=== PATIENT | female | born 1990 | race Caucasian/White ===

== ENCOUNTER → 2018-10-31 | Outpatient (REF) | payer BC ==
[2018-11-04 14:12] LABS: HPV HYBRID CAPTURE II Negative (Negative)
== END ==
LOC: M LAB REF 13:14
PROVIDERS: ATTEND Specialist
DX: Z12.4 Encounter for screening for malignant neoplasm of cervix (principal)
CPT/HCPCS: 87624; G0123

== ENCOUNTER → 2022-07-22 | Outpatient (CLI) | payer BC | LOC: M WHC 10:14 | PROVIDERS: ATTEND Advanced Practice Midwife | DX: O09.812 Supervision of pregnancy resulting from assisted reproductive technology, second trimester (principal); Z3A.20 20 weeks gestation of pregnancy ==

== ENCOUNTER → 2022-09-04 | Outpatient (CLI) | payer BC ==
[2022-09-04 13:57] LABS: HEMATOCRIT 34.1 % (36.0-47.0); HEMOGLOBIN 11.3 g/dl (12.0-15.5); MEAN CORPUSCULAR HEMOGLOBIN 30.5 pg (27.0-33.0); MEAN CORPUSCULAR HGB CONC 33.1 g/dl (32.0-36.5); MEAN CORPUSCULAR VOLUME 92.2 fl (80.0-96.0); PLATELET COUNT, AUTOMATED 259 10^3/uL (150-450); WHITE BLOOD COUNT 10.4 10^3/uL (4.0-10.0)
== END ==
LOC: M PLALAB 09:36
PROVIDERS: ATTEND Advanced Practice Midwife
DX: O09.812 Supervision of pregnancy resulting from assisted reproductive technology, second trimester (principal)

== ENCOUNTER → 2022-09-14 | Outpatient (CLI) | payer BC | LOC: M WHC 10:20 | PROVIDERS: ATTEND Advanced Practice Midwife | DX: O09.813 Supervision of pregnancy resulting from assisted reproductive technology, third trimester (principal); Z3A.28 28 weeks gestation of pregnancy ==

== ENCOUNTER → 2022-11-12 | Outpatient (REF) | payer BC | LOC: M PLALAB 16:03 | PROVIDERS: ATTEND Advanced Practice Midwife | DX: Z36.85 Encounter for antenatal screening for Streptococcus B (principal) ==

== ENCOUNTER → 2022-12-02 | Outpatient (CLI) | payer BC | LOC: M WHC 13:25 | PROVIDERS: ATTEND Advanced Practice Midwife | DX: O40.3XX0 Polyhydramnios, third trimester, not applicable or unspecified (principal) ==

== ENCOUNTER 2022-12-05 14:10 | Inpatient (IN) | payer BC ==
[~2022-12-05] VITALS: Ht 160 cm; Wt 82.2 kg
[2022-12-05] MEDS ORDERED: CELE10TA PO (14:44)
[2022-12-05] MEDS ORDERED: PRENTAB9 PO (14:44)
[2022-12-05] MEDS ORDERED: TUMS500C PO (14:44)
[2022-12-05 14:52] VITALS: BP 112/77
[2022-12-05 15:47] LABS: HEMOGLOBIN 11.8 g/dl (12.0-15.5); MEAN CORPUSCULAR HEMOGLOBIN 30.6 pg (27.0-33.0); MEAN CORPUSCULAR HGB CONC 34.7 g/dl (32.0-36.5); MEAN CORPUSCULAR VOLUME 88.3 fl (80.0-96.0); PLATELET COUNT, AUTOMATED 225 10^3/uL (150-450); RED BLOOD COUNT 3.85 10^6/uL (4.00-5.40)
[2022-12-05] MEDS ORDERED: PENICILLIN G POTASSIUM 5 MU IV 5 MU in D5W MINI-BAG PLUS 100 ML IV STA (16:38)
[2022-12-05] MEDS ORDERED: LACTATED RINGER'S 1000 ML IV STA (16:38)
[2022-12-05] MEDS ORDERED: CARBOPROST TROMETHAMINE 250 MCG/ML AMP IM PRN (16:40)
[2022-12-05] MEDS ORDERED: LIDOCAINE 1% MDV 20ML VIAL INFIL PRN (16:40)
[2022-12-05] MEDS ORDERED: TRANEXAMIC ACID INJection 1,000 MG in NS 100 ML IV PRN (16:40)
[2022-12-05] MEDS ORDERED: METHYLERGONOVINE MALEATE 0.2MG/ML 1ML VIAL IM PRN (16:40)
[2022-12-05] MEDS ORDERED: OXYTOCIN DRIP 30 UNITS in IV 1 EA IV PRN (16:40)
[2022-12-05 16:59] LABS: GC DNA AMPLIFICATION NEGATIVE (NEGATIVE)
[2022-12-05] MEDS: LR 1,000 ML IV SCH (16:59)
[2022-12-05] MEDS: miSOPROStol 50MCG 1/2 TABLET SL SCH ×2 (16:59→21:24)
[2022-12-05 17:01] VITALS: BP 130/88
[2022-12-05] MEDS: PEN G POT 3,000,000 UNIT/50 ML 3,000,000 UNIT in IV 1 EA IV SCH (21:24)
[2022-12-06] VITALS (42 sets, daily range): BP systolic 101–144; BP diastolic 55–86
[2022-12-06] MEDS ORDERED: OXYTOCIN DRIP 30 UNITS in IV 1 EA IV SCH (01:00)
[2022-12-06] MEDS: PEN G POT 3,000,000 UNIT/50 ML 3,000,000 UNIT in IV 1 EA IV SCH ×6 (01:12→21:26)
[2022-12-06] MEDS ORDERED: MORPHINE 10 MG/ML 1ML VIAL IV ONE (03:30)
[2022-12-06] MEDS ORDERED: PROMETHAZINE 25MG/ML 1ML VIAL IV ONE (03:30)
[2022-12-06] MEDS: LR 1,000 ML IV SCH ×3 (05:03→18:09)
[2022-12-06] MEDS ORDERED: FENTANYL 2MCG/ML ROPIVACAINE 0.2% IN 0.9% NACL 100ML IVBAG As Ordered ONE (12:52)
[2022-12-06] MEDS ORDERED: EPIDURAL/PCA KEYS XX PRN (12:55)
[2022-12-06] MEDS ORDERED: diphenhydrAMINE 50MG/ML VIAL IV PRN (12:55)
[2022-12-06] MEDS ORDERED: NALOXONE INJ 0.4MG/1ML VIAL IV PRN (12:55)
[2022-12-06] MEDS ORDERED: ePHEDrine SULFATE 25 MG/5 ML(5MG/ML) SYRINGE IVP PRN (12:55)
[2022-12-06] MEDS ORDERED: LR 500 ML IV PRN (12:55)
[2022-12-06] MEDS ORDERED: ONDANSETRON 4MG 2ML VIAL IV PRN (12:55)
[2022-12-06] MEDS: FENTANYL/ROPIVACAINE/NACL BAG 100 ML EPIDURAL SCH ×2 (13:20→21:27)
[2022-12-06] MEDS: D5W/0.9% SODIUM CHLORIDE 1,000 ML IV SCH (19:58)
[2022-12-07] VITALS (10 sets, daily range): BP systolic 101–134; BP diastolic 56–79
[2022-12-07] MEDS: LR 1,000 ML IV SCH (01:00)
[2022-12-07] MEDS: PEN G POT 3,000,000 UNIT/50 ML 3,000,000 UNIT in IV 1 EA IV SCH (01:56)
[2022-12-07] MEDS ORDERED: ACETAMINOPHEN TAB 650MG DOSE (2X325MG) PO PRN (03:05)
[2022-12-07] MEDS ORDERED: ANUSOL HC CREAM 30GM TOP PRN (03:05)
[2022-12-07] MEDS ORDERED: LR 1,000 ML IV SCH (03:05)
[2022-12-07] MEDS ORDERED: IBUPROFEN 600MG TAB PO PRN (03:05)
[2022-12-07] MEDS ORDERED: METHYLERGONOVINE MALEATE 0.2 MG TAB PO PRN (03:05)
[2022-12-07] MEDS ORDERED: RHOGAM 300MCG (1500IU) INJ IM SCH (03:05)
[2022-12-07] MEDS ORDERED: DIBUCAINE 1% OINTMENT 30GM TOP PRN (03:05)
[2022-12-07] MEDS ORDERED: ONDANSETRON 4MG 2ML VIAL IV PRN (03:05)
[2022-12-07] MEDS ORDERED: OXYTOCIN DRIP 30 UNITS in IV 1 EA IV SCH (03:05)
[2022-12-07] MEDS: D5W/0.9% SODIUM CHLORIDE 1,000 ML IV SCH (03:20)
[2022-12-07] MEDS: IBUPROFEN 800 MG TAB PO PRN ×2 (06:34→17:19)
[2022-12-07] MEDS: PRENATAL VITAMINS CHEWABLE TABLET PO SCH (10:07)
[2022-12-07] MEDS: ACETAMINOPHEN 500 MG TAB PO PRN ×2 (10:08→22:19)
[2022-12-07] MEDS: DOCUSATE SODIUM 100MG CAPSULE PO PRN (22:19)
[2022-12-08] MEDS: IBUPROFEN 800 MG TAB PO PRN ×2 (05:13→13:20)
[2022-12-08 06:00] VITALS: BP 109/65
[2022-12-08] MEDS: PRENATAL VITAMINS CHEWABLE TABLET PO SCH ×2 (09:00→18:49)
[2022-12-08] MEDS: DOCUSATE SODIUM 100MG CAPSULE PO PRN ×2 (13:19→21:37)
[2022-12-08 18:00] VITALS: BP 133/76
[2022-12-08] MEDS: ACETAMINOPHEN 500 MG TAB PO PRN (21:37)
[2022-12-09 06:00] VITALS: BP 119/82
[2022-12-09] MEDS: IBUPROFEN 800 MG TAB PO PRN (07:41)
[2022-12-09] MEDS: PRENATAL VITAMINS CHEWABLE TABLET PO SCH (07:41)
[2022-12-09] MEDS ORDERED: MEASLES,MUMPS,RUBELLA VACCINE INJ (MMR-II) SC.IMMUN ONE (09:00)
== END 2022-12-09 11:17 | disposition home or self-care (01) | DRG 560 ==
LOC: M LDI 14:32 → M OBS 12-07 04:32
PROVIDERS: ADMIT Obstetrics & Gynecology; ATTEND Obstetrics & Gynecology
PROC: 10907ZC Drainage of Amniotic Fluid, Therapeutic from Products of Conception, Via Natural or Artificial Opening (ICD-10-PCS; 2022-12-06)
PROC: 3E033VJ Introduction of Other Hormone into Peripheral Vein, Percutaneous Approach (ICD-10-PCS; 2022-12-06)
PROC: 10E0XZZ Delivery of Products of Conception, External Approach (ICD-10-PCS; principal; 2022-12-07)
PROC: 0HQ9XZZ Repair Perineum Skin, External Approach (ICD-10-PCS; 2022-12-07)
DX: O41.03X0 Oligohydramnios, third trimester, not applicable or unspecified (principal); O99.824 Streptococcus B carrier state complicating childbirth; Z37.0 Single live birth; Z3A.39 39 weeks gestation of pregnancy; O70.1 Second degree perineal laceration during delivery

== ENCOUNTER → 2023-03-22 | Outpatient (REF) | payer BC ==
[~2023-03-22] MED LIST: CELE10TA PO; PRENTAB9 PO; TUMS500C PO
== END ==
LOC: M SFHCWAGY 17:29
PROVIDERS: ATTEND Nurse Practitioner Family
DX: Z12.4 Encounter for screening for malignant neoplasm of cervix (principal)
CPT/HCPCS: 87624; G0123

== ENCOUNTER → 2024-05-10 | Outpatient (CLI) | payer BC ==
[2024-05-10 19:57] LABS: ALBUMIN 4.1 G/DL (3.2-5.2); ALKALINE PHOSPHATASE 77 U/L (46-116); ALT/SGPT 22 U/L (7.0-40); AST/SGOT 15 U/L (<34); BILIRUBIN,TOTAL 0.3 MG/DL (0.3-1.2); BLOOD UREA NITROGEN 19 MG/DL (9-23); CALCIUM LEVEL 9.7 MG/DL (8.5-10.1); CARBON DIOXIDE LEVEL 27 MMOL/L (20-31); CHLORIDE LEVEL 109 MMOL/L (98-107); CREATININE FOR GFR 0.53 MG/DL (0.55-1.30); GLOMERULAR FILTRATION RATE > 60.0 (>60); GLUCOSE, FASTING 82 MG/DL (60-100); POTASSIUM SERUM 5.1 MMOL/L (3.5-5.1); SODIUM LEVEL 141 MMOL/L (136-145); TOTAL PROTEIN 7.4 G/DL (5.7-8.2)
[2024-05-10 20:02] LABS: HEMOGLOBIN A1c 4.8 % (4.0-6.0)
[2024-05-10 20:04] LABS: PROLACTIN 7.27 NG/ML
[2024-05-12 11:23] LABS: DEHYDROEPIANDROSTERONE SULFATE 355 mcg/dL (19-237)
== END ==
LOC: M PLALAB 16:23
PROVIDERS: ATTEND Nurse Practitioner Family
DX: L68.0 Hirsutism (principal)